=== PATIENT | male | born 1970 | race American Indian/Alaskan Native ===

== ENCOUNTER 2017-05-12 21:22 | Inpatient (IN) | payer MEDICAID ==
--- NOTE | 2017-05-12 22:32 | C.PDOC ---
History Of Present Illness 46 year old male, who presents to the ED for detoxification bed s/p heroin and cocaine use since a few hours ago. Patient denies prior medical history and has no previous detox history. Patient denies chest pain, shortness of breath, nausea, vomiting, diarrhea, or other complaints. Chief Complaint (Nursing): Substance Abuse History Per: Patient History/Exam Limitations: no limitations Onset/Duration Of Symptoms: Hrs Current Symptoms Are (Timing): Still Present Suicide/Self Injury Attempted (Context): None Modifying Factor(s): Narcotics, Cocaine Involuntary Hold By: None Recent travel outside of the [place]: No Past Medical History Reviewed: Historical Data, Nursing Documentation, Vital Signs Vital Signs: Last Vital Signs Temp 97.8 F 05/12/17 21:40 Pulse 69 05/12/17 21:40 Resp 18 05/12/17 21:40 BP 139/87 05/12/17 21:40 Pulse Ox 100 05/12/17 22:44 - Medical History PMH: Asthma Denies: Chronic Kidney Disease Family History: States: No Known Family Hx - Social History Hx Alcohol Use: No Hx Substance Use: Yes - Immunization History Hx Tetanus Toxoid Vaccination: No Hx Influenza Vaccination: No Hx Pneumococcal Vaccination: No Review Of Systems Except As Marked, All Systems Reviewed And Found Negative. Constitutional: Negative for: Fever Cardiovascular: Negative for: Chest Pain Respiratory: Negative for: Shortness of Breath Psych: Positive for: Withdrawal (heroin and cocaine use) Physical Exam - Physical Exam Appears: Toxic, No Acute Distress Skin: Normal Color, Warm, Dry Head: Atraumatic, Normacephalic Eye(s): bilateral: Normal Inspection, PERRL, EOMI Chest: No Tenderness Cardiovascular: Rhythm Regular, No Murmur Respiratory: No Rales, No Rhonchi, No Wheezing Gastrointestinal/Abdominal: Bowel Sounds (active), Soft, No Tenderness, No Distention, No Guarding, No Rebound Extremity: Normal ROM Neurological/Psych: Oriented x3, Normal Speech, Normal Motor, Normal Sensation ED Course And Treatment - Laboratory Results Result Diagrams: 05/12/17 22:37 05/12/17 22:37 O2 Sat by Pulse Oximetry: 100 (room air) Pulse Ox Interpretation: Normal Medical Decision Making Medical Decision Making: Impression: 46 y/o male who presents for detoxification bed. Differential Diagnosis included but are not limited to: drug dependency Plan: -- Labs -- Urinalysis -- Reassess and disposition Disposition - Disposition Disposition: HOSPITALIZED Disposition Time: 00:44 Condition: GOOD Forms: [facility] (Kyrgyz) - Clinical Impression Clinical Impression: Drug dependence - Scribe Statement The provider has reviewed the documentation as recorded by the Dioibe Scribe Attestation: Arti Desouzae Attestation: All medical record entries made by the Scribe were at my direction and personally dictated by me. I have reviewed the chart and agree that the record accurately reflects my personal performance of the history, physical exam, medical decision making, and the department course for this patient. I have also personally directed, reviewed, and agree with the discharge instructions and disposition.
[2017-05-12 22:40] LABS: BASO # 0.1 K/uL (0.0-0.2); EOS % 0.9 % (0.0-4.0); HEMOGLOBIN 12.2 g/dL (12.0-18.0); LYMPH # 1.3 K/uL (1.0-4.3); LYMPH % 23.7 % (20.0-40.0); MEAN CELL VOLUME 86.7 fL (80.0-94.0); MEAN CORPUSCULAR HEMOGLOBIN 28.4 pg (27.0-31.0); MEAN CORPUSCULAR HGB CONC 32.8 g/dL (33.0-37.0); MEAN PLATELET VOLUME 6.9 fL (7.2-11.7); MONO # 0.3 K/uL (0.0-0.8); MONO % 6.4 % (0.0-10.0); NEUT # 3.7 K/uL (1.8-7.0); NRBC % 0.1 % (0.0-2.0); RBC 4.3 Mil/uL (4.40-5.90); RED CELL DISTRIBUTION WIDTH 14.5 % (11.5-14.5); WHITE BLOOD COUNT 5.4 K/uL (4.8-10.8)
[2017-05-12 22:48] LABS: URINE BILIRUBIN NEGATIVE (NEGATIVE); URINE BLOOD NEGATIVE (NEGATIVE); URINE CLARITY Clear (Clear); URINE COLOR Yellow (YELLOW); URINE GLUCOSE (UA) NORMAL (Normal); URINE LEUKOCYTE ESTERASE NEG Leu/uL (Negative); URINE NITRATE NEGATIVE (NEGATIVE); URINE PROTEIN 1+ mg/dL (NEGATIVE)
[2017-05-12 22:52] LABS: ALB/GLOB RATIO 1.1 (1.0-2.1); ALBUMIN 3.9 g/dL (3.5-5.0); ALT/SGPT 31 U/L (21-72); AST/SGOT 25 U/L (17-59); BLOOD UREA NITROGEN 15 mg/dL (9-20); CALCIUM 9.2 mg/dl (8.6-10.4); GFR AFRICAN-AMERICAN > 60; GFR NON-AFRICAN AMERICAN > 60
[2017-05-12 22:57] LABS: BARBITURATES, UR NEGATIVE (NEGATIVE); BENZODIAZEPINES, UR NEGATIVE (NEGATIVE); PHENCYCLIDINE, UR NEGATIVE (NEGATIVE)
[2017-05-12 22:58] LABS: OPIATES, UR POSITIVE (NEGATIVE)
--- NOTE | 2017-05-13 01:07 | PCM.BM ---
<Adrienne Thompson - Last Filed: 05/13/17 01:06> Treatment Plan Problems - Problems identified on initial assessmt Ineffective Coping Skills Date Initiated: 05/13/17 Time Initiated: 01:07 Assessment reference: NA Status: Active Treatment assets and liabiliti Patient Assests: ADL independent Patient Liabilities: substance abuse - Milieu Protocol Maintain good personal hygiene: daily Encourage regular showers, daily Remind patient to perform daily oral care, other Assist patient to perform ADL's Maintain personal safety: every shift Educate patient to report safety concerns to staff, every shift Monitor environment for contraband/sharps Medication safety: Monitor for expected outcome, potential side effects: every shift, Assess barriers to learning: every shift, Assess readiness for medication education: every shift <Vonda Rudd - Last Filed: 05/14/17 23:53> - Diagnosis (1) Opioid use disorder, severe, dependence Status: Acute Interventions: 05/14/17 23:53 * Assess 7x/week regarding severity of withdrawal * Educate regarding risks, benefits, side effects and alternatives of medications * Use Motivational Interviewing for abstinence * Use CBT for relapse prevention * Medication management for withdrawal symptoms * Encourage medication assisted treatment *
--- NOTE | 2017-05-13 12:07 | PCM.PSYCH ---
Initial Psychiatric Evaluation - Initial Psychiatric Evaluation Type of Admission: Voluntary Legal Status: Capacity Chief Complaint (in patient's own words): I came here to get help.' History of Present Illness and Precipitating Events: This is a 46 years old AAM, lives with parents and currently unemployed, was working in [place] x 2 weeks ago, with a history of opiate use disorder and cocaine use disorder came to the ED to get help in heroin detox. Patient reports of a long history of abusing heroin and cocaine. As per the patient, he is sniffing 15-20 bags daily along with $20 cocaine. As per the patient yesterday he sniffed almost 15 bags of heroin and some lines of cocaine , started experiencing withdrawal symptoms and so came to the hospital to get help. Patient reports withdrawal symptoms sweating, headaches, anxiety, nausea, abdominal cramps and joint pains. Reports irritable mood but denies any feelings of hopelessness and helplessness. Denies any suicidal ideation or homicidal ideation. Patient denies any auditory or visual hallucinations or any psychotic symptoms. Denies any manic symptoms. Denies any other substance abuse. His longest period of sobriety was from [id number] when he was incarcerated for charges of robbery. Past medical history Asthma Current Medications: Active Medications Generic Name Dose Route Start Last Admin Trade Name Freq PRN Reason Stop Dose Admin Acetaminophen 650 mg 05/13/17 01:13 Tylenol 325mg Tab PO Q6 PRN Pain, moderate (4-7) Clonidine HCl 0.1 mg 05/13/17 01:10 Catapres PO Q8H PRN Withdrawal Symptoms Hydroxyzine HCl 50 mg 05/13/17 01:11 Atarax PO Q6H PRN Anxiety Ondansetron HCl 4 mg 05/13/17 01:12 Zofran Odt PO Q8H PRN Nausea/Vomiting Trazodone HCl 50 mg 05/13/17 01:12 05/13/17 02:31 Desyrel PO 50 mg HS PRN Administration Insomnia Past Psychiatric History - Past Psychiatric History Previous Treatment History: None Pertinent Medical Hx (Current Medical&Sleep Prob, Allergies): Allergies Allergy/AdvReac Type Severity Reaction Status Date / Time No Known Allergies Allergy Verified 05/12/17 21:42 No Known Home Med 05/12/17 Review of Systems - Review of Systems All systems: reviewed and no additional remarkable complaints except - Psychiatric Psychiatric: Anxiety, Irritability. absent: Auditory Hallucinations, Suicidal Ideation, Visual Hallucinations Mental Status Examination - Personal Presentation Personal Presentation: Looks stated age - Affect Affect: Constricted - Motor Activity Motor Activity: Calm - Reliability in Providing Information Reliability in Providing Information: Fair - Speech Speech: Organized - Mood Mood: Anxious - Formal Thought Process Formal Thought Process: No Impairment - Obsessions/Compulsions Obsessions: No Compulsions: No - Cognitive Functions Orientation: Person, Place, Situation, Time Sensorium: Alert Attention/Concentration: Attentive Abstract Thinking: [place] Estimate of Intelligence: Below average Judgement: Imparied, as evidence by: Poor judgement, Imparied, as evidence by: Lack of insight into illness - Risk Risk: Withdrawal, Diminished functioning - Strength & Assets Inventory Strength & Assets Inventory: Intelligence - Limitations Limitations: Living alone DSM 5 DX - DSM 5 DSM 5 Diagnosis: Opioid use disorder severe Opioid withdrawal Cocaine use disorder severe - Recommended/Plan of Treatment Treatment Recommendations and Plan of Treatment: Opioid use disorder severe CBT Psychoeducation Supportive therapy, individual therapy Use UT for abstinence Opioid withdrawal CBT Psychoeducation Supportive therapy, individual therapy Clonidine when necessary Methadone taper Cocaine use disorder severe Monitor signs and symptoms Use UT for abstinence Asthma Continue prescribed medications - Smoking Cessation Smoking Cessation Initiated: No
[2017-05-14 09:27] VITALS: RESP 18
--- NOTE | 2017-05-14 14:38 | PCM.PYCHPN ---
Psychiatric Progress Note - Psychiatric Progress Note Patient seen today, length of contact: 15 min Patient Chief Complaint: "I'm doing okay" Problems Identified/Issues Discussed: The patient is seen, chart reviewed, case discussed with staff. Support given, CBT and OK used briefly Patient admits to having some difficulty remaining asleep at night as well as some persistant withdrawal symptoms including anxiety, nausea, abdominal pain and irritability. He is improving slowly and needs more time No SEs from medications noted, risks discussed. After care discussed, he is interested in rehab. However, he called his customs and border protection officer and they came to arrest him as he had violated his parole, per the officers. It is postponed until he completes his detox. Medication Change: Yes (detox changes daily) Medical Record Reviewed: Yes Mental Status Examination - Cognitive Function Orientation: Person, Place, Situation, Time Memory: Intact Attention: WNL Concentration: WNL Association: WNL Fund of Knowledge: WNL - Mood Mood: Anxious - Affect Affect: Constricted - Speech Speech: Appropriate - Formal Thought Process Formal Thought Process: No Impairment - Suicidal Ideation Suicidal Ideation: No - Homicidal Ideation Homicidal Ideation: No Goal/Treatment Plan - Goal/Treatment Plan Need for Continued Stay: Remain at risks for inpatient hospitalization, Discharge may exacerbated symptoms, Severe functional impairment Progress Toward Problem(s) and Goals/Treatment Plan: Continue medications, including methadone taper Will start gabapentin for augmentation Support and psychoeducation daily Attend groups and activities daily After care planning by COLTON Estimated Date of D/C: 05/16/17 - Smoking Cessation Smoking Cessation Initiated: No
--- NOTE | 2017-05-16 08:13 | PCM.PYCHDC ---
Mental Status Examination - Mental Status Examination Orientation: Person, Place, Situation, Time Memory: Intact Mood: Anxious Affect: Constricted Speech: Appropriate Attention: WNL Concentration: Poor Association: WNL Fund of Knowledge: WNL Formal Thought Process: No Impairment Suicidal Ideation: No Current Homicidal Ideation?: No Discharge Summary - Discharge Note Reason for Hospitalization: Heroin detox Consultations:: List each consultation separately and include: 1. Reason for request. 2. Findings. 3. Follow-up Summary of Hospital Course include:: 1. Description of specific treatment plan utilized for patients during their course of treatmen. 2. Summarize the time- course for resolution of acute symptoms and/or regressed behaviors. 3. Describe issues identified and worked on during hospitalization. 4. Describe medication utilized. 5. Describe medical problems identified and treated. 6. Reassessment of suicide risk Summary of Hospital Course: The pt was admitted and started on treatment with psychotherapy, support, psychoeducation and medications. PR and CBT used. The pt attended groups and activities, as well as milieu therapy. All the risks and benefits of medications are discussed and the patient understood and agreed. The pt improved with the treatments provided. He was somewhat depressed b/c of his pending parole violation and arrest. In fact, POs came and arrested him right after d/c, it is not known how they found out he was here, but the pt was calling his PO to tell him he was in treatment, which may be how. - Diagnosis (1) Opioid use disorder, severe, dependence Status: Acute - Final Diagnosis (DSM 5) Condition upon Discharge: GOOD Disposition: RELEASED IN [employer] Follow-up Treatment Plan: Continue below medications after discharge. No after care due to his arrest Use relapse prevention skills Return to ER or call 911 if suicidal, homicidal or symptoms relapse. Stay away from stress, alcohol and drugs. Prescriptions/Medication Reconciliation: QUEtiapine [SEROquel] 50 mg PO HS #30 tab traZODone [Desyrel] 100 mg PO HS PRN #30 tab PRN Reason: Insomnia - Smoking Cessation Smoking Cessation Medication prescribed: No - Antipsychotic Medications Pt discharged on 2 or more routine antipsychotic medications: No
--- NOTE | 2017-05-16 08:14 | PCM.PYCHPN ---
Psychiatric Progress Note - Psychiatric Progress Note Patient seen today, length of contact: 15 min Patient Chief Complaint: "I'm tired, anxious" Problems Identified/Issues Discussed: The pt is seen, chart reviewed, case discussed with staff. The pt is compliant with medications and reports no side-effects. Symptoms are improving but needs more time to stabilize. After care discussed, support and psychoeducation given. He likely learned from his PO that he would be dc'ed for violation, as he is somewhat down and aloof. Support given, ativan ordered. Medication Change: Yes (detox changes daily) Medical Record Reviewed: Yes Mental Status Examination - Cognitive Function Orientation: Person, Place, Situation, Time Memory: Intact Attention: WNL Concentration: Poor Association: WNL Fund of Knowledge: WNL - Mood Mood: Anxious - Affect Affect: Constricted - Speech Speech: Appropriate - Formal Thought Process Formal Thought Process: No Impairment - Suicidal Ideation Suicidal Ideation: No - Homicidal Ideation Homicidal Ideation: No Goal/Treatment Plan - Goal/Treatment Plan Need for Continued Stay: Remain at risks for inpatient hospitalization, Discharge may exacerbated symptoms, Severe functional impairment Progress Toward Problem(s) and Goals/Treatment Plan: Continue medications, including methadone taper Will start gabapentin for augmentation Support and psychoeducation daily Attend groups and activities daily After care planning by COLTON Estimated Date of D/C: 05/16/17
[2017-05-16 10:13] VITALS: BP 135/81; PULSE 71; TEMP 98; O2SAT 100
== END 2017-05-16 10:05 | DRG 897 ==
LOC: C.ER 21:22 → C.9E 05-13 00:38 → C.7D 05-13 01:02
PROVIDERS: ADMIT Psychiatry & Neurology Psychiatry; ATTEND Psychiatry & Neurology Psychiatry
PROC: HZ2ZZZZ Detoxification Services for Substance Abuse Treatment (ICD-10-PCS; principal; 2017-05-13)
DX: F11.23 Opioid dependence with withdrawal (principal); F14.10 Cocaine abuse, uncomplicated; F41.9 Anxiety disorder, unspecified; J45.909 Unspecified asthma, uncomplicated